=== PATIENT | male | born 1955 | race Caucasian/White ===

== ENCOUNTER 2018-09-11 02:24 | Emergency (ER) | payer SELFPAY ==
[~2018-09-11] VITALS: Ht 177.8 cm; Wt 70.0 kg
[2018-09-11 02:28] VITALS: BP 116/63
[2018-09-11 03:08] LABS: BASOPHILS # (AUTO) 0.03 x10^3/uL (0-0.1); BASOPHILS % (AUTO) 1 % (0-1); EOSINOPHILS # (AUTO) 0.15 x10^3/uL (0-0.4); EOSINOPHILS % (AUTO) 4 % (1-7); LYMPHOCYTES # (AUTO) 0.74 x10^3/uL (1-3.4); LYMPHOCYTES % (AUTO) 17 % (22-44); MD NO; MEAN CORPUSCULAR HGB CONC 33.6 g/dL (33.2-36.2); MEAN CORPUSCULAR VOLUME 92.2 fL (81-97); MEAN PLATELET VOLUME 6.5 fL (7.4-10.4); MONOCYTES # (AUTO) 0.67 x10^3/uL (0.2-0.8); MONOCYTES % (AUTO) 15 % (2-9); NEUTROPHILS # (AUTO) 2.73 x10^3/uL (1.8-6.8); NEUTROPHILS % (AUTO) 63 % (42-75); PLATELET COUNT 365 x10^3/uL (130-400); RED BLOOD COUNT 3.88 x10^6/uL (4.38-5.82); RED CELL DISTRIBUTION WIDTH 16.6 % (9.4-14.8)
[2018-09-11 03:17] LABS: ALANINE AMINOTRANSFERASE 23 U/L (12-78); ALBUMIN 3.5 g/dL (3.4-5.0); ANION GAP 12 mmol/L (5-15); CALCIUM 8.1 mg/dL (8.5-10.1); CHLORIDE 100 mmol/L (98-107); CREATININE 0.96 mg/dL (0.7-1.3)
[2018-09-11 03:20] LABS: ALKALINE PHOSPHATASE 73 U/L (45-117); BILIRUBIN,TOTAL 0.3 mg/dL (0.2-1.0); TOTAL PROTEIN 6.6 g/dL (6.4-8.2)
== END 2018-09-11 04:09 | disposition home or self-care (01) ==
LOC: ED 04:03
DX: F10.129 Alcohol abuse with intoxication, unspecified (principal); R56.9 Unspecified convulsions
CPT/HCPCS: 36415; 80053; 80307; 85025; 99283

== ENCOUNTER 2018-09-16 00:49 | Emergency (ER) | payer MEDICAID, MEDICARE ==
[~2018-09-16] VITALS: Ht 182.9 cm; Wt 60.0 kg
[2018-09-16] MEDS ORDERED: DEPAKOTE (01:02)
[2018-09-16] MEDS ORDERED: ALBUTEROL MDI (01:02)
[2018-09-16] MEDS ORDERED: SEROQUEL (01:02)
[2018-09-16 01:18] LABS: ALBUMIN 3.7 g/dL (3.4-5.0); ANION GAP 9 mmol/L (5-15); CALCIUM 8.1 mg/dL (8.5-10.1); CHLORIDE 107 mmol/L (98-107); CREATININE 0.97 mg/dL (0.7-1.3)
[2018-09-16 01:20] LABS: BASOPHILS # (AUTO) 0.12 x10^3/uL (0-0.1); BASOPHILS % (AUTO) 2 % (0-1); EOSINOPHILS # (AUTO) 0.15 x10^3/uL (0-0.4); EOSINOPHILS % (AUTO) 2 % (1-7); LYMPHOCYTES % (AUTO) 25 % (22-44); MD NO; MEAN CORPUSCULAR HEMOGLOBIN 30.8 pg (27.5-34.5); MEAN CORPUSCULAR HGB CONC 33.5 g/dL (33.2-36.2); MEAN CORPUSCULAR VOLUME 91.8 fL (81-97); MEAN PLATELET VOLUME 6.9 fL (7.4-10.4); MONOCYTES # (AUTO) 0.53 x10^3/uL (0.2-0.8); MONOCYTES % (AUTO) 7 % (2-9); NEUTROPHILS # (AUTO) 4.92 x10^3/uL (1.8-6.8); NEUTROPHILS % (AUTO) 65 % (42-75); PLATELET COUNT 313 x10^3/uL (130-400); RED BLOOD COUNT 3.75 x10^6/uL (4.38-5.82); RED CELL DISTRIBUTION WIDTH 16.3 % (9.4-14.8)
[2018-09-16 01:54] VITALS: BP 122/86
== END 2018-09-16 02:06 | disposition home or self-care (01) ==
LOC: ED 01:54
DX: G40.319 Generalized idiopathic epilepsy and epileptic syndromes, intractable, without status epilepticus (principal); Z72.9 Problem related to lifestyle, unspecified; F31.9 Bipolar disorder, unspecified; F17.200 Nicotine dependence, unspecified, uncomplicated
CPT/HCPCS: 36415; 80048; 82040; 85025; 93005; 99284

== ENCOUNTER 2018-09-16 14:02 | Emergency (ER) | payer MEDICARE ==
[~2018-09-16] VITALS: Ht 182.9 cm; Wt 58.0 kg
[~2018-09-16 14:02] MED LIST: ALBUTEROL MDI; DEPAKOTE; SEROQUEL
[2018-09-16 16:14] LABS: BASOPHILS # (AUTO) 0.06 x10^3/uL (0-0.1); BASOPHILS % (AUTO) 1 % (0-1); EOSINOPHILS # (AUTO) 0.14 x10^3/uL (0-0.4); EOSINOPHILS % (AUTO) 3 % (1-7); LYMPHOCYTES # (AUTO) 1.49 x10^3/uL (1-3.4); LYMPHOCYTES % (AUTO) 26 % (22-44); MD NO; MEAN CORPUSCULAR HEMOGLOBIN 30.3 pg (27.5-34.5); MEAN CORPUSCULAR HGB CONC 32.8 g/dL (33.2-36.2); MEAN CORPUSCULAR VOLUME 92.3 fL (81-97); MEAN PLATELET VOLUME 6.8 fL (7.4-10.4); MONOCYTES # (AUTO) 0.45 x10^3/uL (0.2-0.8); MONOCYTES % (AUTO) 8 % (2-9); NEUTROPHILS # (AUTO) 3.69 x10^3/uL (1.8-6.8); NEUTROPHILS % (AUTO) 63 % (42-75); PLATELET COUNT 325 x10^3/uL (130-400); RED BLOOD COUNT 3.92 x10^6/uL (4.38-5.82); RED CELL DISTRIBUTION WIDTH 17.5 % (9.4-14.8)
[2018-09-16 16:25] LABS: ALANINE AMINOTRANSFERASE 41 U/L (12-78); ALBUMIN 3.6 g/dL (3.4-5.0); ANION GAP 7 mmol/L (5-15); CALCIUM 7.9 mg/dL (8.5-10.1); CHLORIDE 105 mmol/L (98-107); CREATININE 1.29 mg/dL (0.7-1.3); SALICYLATE LEVEL 3.4 mg/dL (2.8-20.0)
[2018-09-16 16:27] LABS: ALKALINE PHOSPHATASE 75 U/L (45-117); BILIRUBIN,TOTAL 0.4 mg/dL (0.2-1.0); TOTAL PROTEIN 6.8 g/dL (6.4-8.2)
[2018-09-16 16:29] LABS: ACETAMINOPHEN < 2 mcg/mL (10-30)
[2018-09-16 16:42] LABS: AMPHETAMINE SCREEN, URINE Negative (Negative); BARBITURATE SCREEN, URINE Negative (Negative); BENZODIAZEPINE SCREEN, URINE Negative (Negative); CANNABINOID SCREEN, URINE Positive (Negative); COCAINE SCREEN, URINE Negative (Negative); METHADONE SCREEN, URINE Negative (Negative); OPIATE SCREEN, URINE Negative (Negative)
[2018-09-16 22:43] VITALS: BP 134/84
== END 2018-09-16 22:45 | disposition home or self-care (01) ==
LOC: ED 16:22
DX: F31.9 Bipolar disorder, unspecified (principal); F10.220 Alcohol dependence with intoxication, uncomplicated; G40.909 Epilepsy, unspecified, not intractable, without status epilepticus
CPT/HCPCS: 36415; 80053; 80307; 80329; 85025; 99284; G0480

== ENCOUNTER 2018-09-18 03:29 | Emergency (ER) | payer MEDICARE ==
[~2018-09-18] VITALS: Ht 177.8 cm; Wt 59.1 kg
[2018-09-18] MEDS ORDERED: ACETAMINOPHEN 500 MG TABLET ONE (03:43)
[2018-09-18] MEDS ORDERED: ACETAMINOPHEN 500 MG TABLET PO ONE (04:00)
[2018-09-18 04:13] VITALS: BP 132/74
== END 2018-09-18 04:43 | disposition home or self-care (01) ==
LOC: ED 03:42
DX: R51 Headache (principal); F31.9 Bipolar disorder, unspecified; G40.909 Epilepsy, unspecified, not intractable, without status epilepticus; F17.200 Nicotine dependence, unspecified, uncomplicated
CPT/HCPCS: 70486; 99284

== ENCOUNTER 2018-09-21 14:10 | Emergency (ER) | payer MEDICARE ==
[~2018-09-21] VITALS: Ht 182.9 cm; Wt 58.0 kg
[2018-09-21 14:14] VITALS: BP 133/83
[2018-09-21] MEDS ORDERED: QUET300T6 PO (14:26)
[2018-09-21] MEDS ORDERED: DIVA500T4 PO (14:26)
== END 2018-09-21 15:00 | disposition home or self-care (01) ==
LOC: ED 14:31
DX: R56.9 Unspecified convulsions (principal); Z76.0 Encounter for issue of repeat prescription; Z59.0 Homelessness; F31.9 Bipolar disorder, unspecified
CPT/HCPCS: 99283

== ENCOUNTER 2018-09-22 17:12 | Emergency (ER) | payer MEDICARE ==
[~2018-09-22] VITALS: Ht 182.9 cm; Wt 70.0 kg
[~2018-09-22 17:12] MED LIST changes: +DIVA500T4 PO; +QUET300T6 PO
--- NOTE | 2018-09-22 17:23 | NUR ---
BIB [facility]. Patient states that he has an rx to fill, but doesn't have the money to fill it. Patient admits to drinking 12 beers today and smoking marijuana. Patient admits to heroin use, but denies using today. Placed on NIBP and pulse ox. Will continue to monitor.
[2018-09-22 18:25] VITALS: BP 118/74
--- NOTE | 2018-09-22 18:25 | NUR ---
Resting in [facility]. VSS.
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
== END 2018-09-22 19:06 | disposition home or self-care (01) ==
LOC: ED 18:36
DX: F10.220 Alcohol dependence with intoxication, uncomplicated (principal); Z72.9 Problem related to lifestyle, unspecified; G40.909 Epilepsy, unspecified, not intractable, without status epilepticus; F31.9 Bipolar disorder, unspecified
CPT/HCPCS: 99283

== ENCOUNTER 2018-09-24 14:35 | Emergency (ER) | payer MEDICARE ==
[~2018-09-24] VITALS: Ht 185.4 cm; Wt 59.0 kg
[2018-09-24 14:49] VITALS: BP 147/86
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
--- NOTE | 2018-09-24 15:10 | NUR ---
PT TO IMAGING.
--- NOTE | 2018-09-24 15:15 | NUR ---
PT BACK FROM IMAGING. NO ACUTE DISTRESS NOTED. ALL SAFETY MEASURES OBTAINED. NO NEEDS REQUESTED AT THIS TIME.
--- NOTE | 2018-09-24 16:07 | NUR ---
PER EDMD, DR. CABALLERO, PT DENIED HI/SI. WHEN THIS RN REASSESSED PT, PT ALSO DENIES HI/SI. PT REQUESTING INFORMATION REGARDING HELPING WITH RX GETTING FILLED.GAVE PT INFORMATION ON CARE CHEST. PT VERBALIZED UNDERSTANDING REGARDING ALL DISCHARGE INFORMATION. ALL QUESTIONS ANSWERED. PT GIVEN ALL PERSONAL BELONGINGS.
--- NOTE | 2018-09-24 16:35 | NUR ---
Patient/Caregiver given discharge instructions and they have confirmed that they understand the instructions. Patient ambulatory with steady gait. PT LEFT WITH ALL PERSONAL BELONGINGS.
== END 2018-09-24 16:37 | disposition home or self-care (01) ==
LOC: ED 16:20
DX: J20.8 Acute bronchitis due to other specified organisms (principal); B97.89 Other viral agents as the cause of diseases classified elsewhere; G40.909 Epilepsy, unspecified, not intractable, without status epilepticus; F31.9 Bipolar disorder, unspecified
CPT/HCPCS: 71046; 99283

== ENCOUNTER 2018-09-25 01:58 | Emergency (ER) | payer MEDICARE | END 2018-09-25 02:05 | disposition left against medical advice (07) | LOC: ED 01:59 | DX: J00 Acute nasopharyngitis [common cold] (principal); Z53.21 Procedure and treatment not carried out due to patient leaving prior to being seen by health care provider ==

== ENCOUNTER 2018-09-25 03:19 | Emergency (ER) | payer MEDICARE ==
[~2018-09-25] VITALS: Ht 177.8 cm; Wt 80.0 kg
--- NOTE | 2018-09-25 03:22 | NUR ---
PT REFUSING TO ALLOW ANY STAFF, INCLUDING [facility], TO DO ANY INTERVENTIONS OR TAKE ANY VITALS/SUGARS ON HIM. MD ORDERS A SUGAR AND VITALS AND PT OUTRIGHT REFUSING.
--- NOTE | 2018-09-25 03:25 | NUR ---
PT KEEPS STATING "ITS COLD OUT THERE" "DONT MAKE ME GO OUT THERE AGAIN TONIGHT..... LET ME STAY HERE THEY REST OF TONIGHT."
== END 2018-09-25 03:32 | disposition home or self-care (01) ==
LOC: ED 03:25
DX: Z76.5 Malingerer [conscious simulation] (principal); J00 Acute nasopharyngitis [common cold]; Z72.9 Problem related to lifestyle, unspecified; F31.9 Bipolar disorder, unspecified; F17.200 Nicotine dependence, unspecified, uncomplicated
CPT/HCPCS: 99283

== ENCOUNTER 2018-09-29 06:47 | Emergency (ER) | payer MEDICARE ==
[~2018-09-29] VITALS: Ht 182.9 cm; Wt 58.0 kg
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
--- NOTE | 2018-09-29 08:54 | NUR ---
PT GIVEN MEAL TRAY
--- NOTE | 2018-09-29 09:36 | NUR ---
PT REBREATHALYZED AT 0.135
[2018-09-29] MEDS ORDERED: ACETAMINOPHEN 325 MG TABLET ONE (11:17)
[2018-09-29] MEDS ORDERED: ACETAMINOPHEN 325 MG TABLET PO ONE (12:00)
--- NOTE | 2018-09-29 12:06 | NUR ---
TASK RN: PT REBREATHALYZED AND IS NOW AT 0.06 PT PROVIDED W/ CUP WATER. CHART PLACED FOR RECHECK.
--- NOTE | 2018-09-29 12:31 | NUR ---
TASK RN: PT AWARE OF NEED FOR UA SAMPLE. URINAL LEFT AT BEDSIDE.
[2018-09-29 12:32] LABS: MEAN CORPUSCULAR HEMOGLOBIN 30.8 pg (27.5-34.5); MEAN CORPUSCULAR VOLUME 90.6 fL (81-97); MEAN PLATELET VOLUME 6.8 fL (7.4-10.4); PLATELET COUNT 369 x10^3/uL (130-400); RED BLOOD COUNT 3.97 x10^6/uL (4.38-5.82); RED CELL DISTRIBUTION WIDTH 16.7 % (9.4-14.8)
[2018-09-29 12:34] LABS: CHLORIDE 100 mmol/L (98-107)
[2018-09-29 12:38] LABS: ALBUMIN 3.6 g/dL (3.4-5.0); ANION GAP 10 mmol/L (5-15); CALCIUM 8.6 mg/dL (8.5-10.1); CREATININE 0.95 mg/dL (0.7-1.3)
[2018-09-29 12:39] LABS: ACETAMINOPHEN < 2 mcg/mL (10-30); SALICYLATE LEVEL 2.4 mg/dL (2.8-20.0)
[2018-09-29 12:49] LABS: BASOPHILS # (AUTO) 0.02 x10^3/uL (0-0.1); BASOPHILS % (AUTO) 0 % (0-1); EOSINOPHILS # (AUTO) 0.04 x10^3/uL (0-0.4); EOSINOPHILS % (AUTO) 0 % (1-7); LYMPHOCYTES # (AUTO) 0.52 x10^3/uL (1-3.4); LYMPHOCYTES % (AUTO) 5 % (22-44); MD SCAN; MONOCYTES # (AUTO) 0.44 x10^3/uL (0.2-0.8); MONOCYTES % (AUTO) 4 % (2-9); NEUTROPHILS # (AUTO) 10.03 x10^3/uL (1.8-6.8); NEUTROPHILS % (AUTO) 91 % (42-75)
--- NOTE | 2018-09-29 13:29 | NUR ---
RECEIVED REPORT . PT IS LAERT AND ORIENTED AND RESTING ON GURNEY WATCHING TV. PO FLUIDS AT BEDSIDE.
[2018-09-29 14:18] LABS: AMPHETAMINE SCREEN, URINE Negative (Negative); BARBITURATE SCREEN, URINE Negative (Negative); BENZODIAZEPINE SCREEN, URINE Negative (Negative); CANNABINOID SCREEN, URINE Positive (Negative); COCAINE SCREEN, URINE Positive (Negative); METHADONE SCREEN, URINE Negative (Negative); OPIATE SCREEN, URINE Negative (Negative)
--- NOTE | 2018-09-29 14:22 | NUR ---
VSS. PT HAS PO'S AT BEDSIDE. CALL LIGHT IS WITHIN REACH. NO NEW COMPLAINTS AT THIS TIME. WAITING FOR PSYCHE EVAL ORDERED BY .
--- NOTE | 2018-09-29 15:14 | NUR ---
Bedside SBAR report received from RN, Angelia. Pt resting on [place], telepsych robot placed at bedside and pt states that he has spoken to a telepsych MD before. Garage doors down and no belongings at bedside. Pt requesting water, this RN to provide.
--- NOTE | 2018-09-29 15:18 | NUR ---
PT AMBULATED TO AND FROM [facility] WITHOUT ASSIST. REPORT TO ANNA DUBOIS.
--- NOTE | 2018-09-29 15:25 | NUR ---
Telephone report given to [facility].
--- NOTE | 2018-09-29 15:28 | NUR ---
Pt speaking to SOC via telepsych at this time.
[2018-09-29 16:23] VITALS: BP 115/74
--- NOTE | 2018-09-29 16:24 | NUR ---
Patient/Caregiver given discharge instructions and they have confirmed that they understand the instructions. Patient ambulatory with steady gait.
== END 2018-09-29 16:25 | disposition home or self-care (01) ==
LOC: ED 06:50
DX: S00.83XA Contusion of other part of head, initial encounter (principal); R45.851 Suicidal ideations; R51 Headache; G40.909 Epilepsy, unspecified, not intractable, without status epilepticus; J44.9 Chronic obstructive pulmonary disease, unspecified; I10 Essential (primary) hypertension; Z59.0 Homelessness; Z72.9 Problem related to lifestyle, unspecified; Z86.73 Personal history of transient ischemic attack (TIA), and cerebral infarction without residual deficits; F17.200 Nicotine dependence, unspecified, uncomplicated; Y04.0XXA Assault by unarmed brawl or fight, initial encounter; Y93.89 Activity, other specified; Y92.89 Other specified places as the place of occurrence of the external cause; Y99.8 Other external cause status
CPT/HCPCS: 36415; 70450; 70486; 80048; 80307; 80329; 82040; 85025; 99284; G0480

== ENCOUNTER 2018-10-03 10:16 | Inpatient (IN) | payer MEDICARE ==
[~2018-10-03] VITALS: Ht 182.9 cm; Wt 64.5 kg
[2018-10-03] MEDS ORDERED: SODIUM CHLORIDE FLUSH 10ML SYR IVF ONE (11:30)
[2018-10-03 11:37] LABS: AMPHETAMINE SCREEN, URINE Negative (Negative); BARBITURATE SCREEN, URINE Negative (Negative); BENZODIAZEPINE SCREEN, URINE Negative (Negative); CANNABINOID SCREEN, URINE Positive (Negative); COCAINE SCREEN, URINE Negative (Negative); METHADONE SCREEN, URINE Negative (Negative); OPIATE SCREEN, URINE Negative (Negative)
[2018-10-03 11:43] LABS: BASOPHILS % (AUTO) 0 % (0-1); EOSINOPHILS # (AUTO) 0.02 x10^3/uL (0-0.4); EOSINOPHILS % (AUTO) 0 % (1-7); LYMPHOCYTES # (AUTO) 0.08 x10^3/uL (1-3.4); LYMPHOCYTES % (AUTO) 1 % (22-44); MD NO; MEAN CORPUSCULAR HEMOGLOBIN 30.1 pg (27.5-34.5); MEAN CORPUSCULAR VOLUME 91.1 fL (81-97); MONOCYTES # (AUTO) 0.56 x10^3/uL (0.2-0.8); MONOCYTES % (AUTO) 6 % (2-9); NEUTROPHILS # (AUTO) 9.16 x10^3/uL (1.8-6.8); NEUTROPHILS % (AUTO) 93 % (42-75); PLATELET COUNT 398 x10^3/uL (130-400); RED BLOOD COUNT 3.93 x10^6/uL (4.38-5.82); RED CELL DISTRIBUTION WIDTH 16.8 % (9.4-14.8)
[2018-10-03 11:53] LABS: INTERNATIONAL NORMALIZED RATIO 0.95 (0.93-1.1); PROTHROMBIN TIME 10.1 Seconds (9.6-11.5)
[2018-10-03 11:55] LABS: ALANINE AMINOTRANSFERASE 34 U/L (12-78); ALBUMIN 3.4 g/dL (3.4-5.0); ANION GAP 4 mmol/L (5-15); CALCIUM 8.9 mg/dL (8.5-10.1); CHLORIDE 102 mmol/L (98-107); CREATININE 0.82 mg/dL (0.7-1.3); SALICYLATE LEVEL 1.9 mg/dL (2.8-20.0)
[2018-10-03 12:00] LABS: ALKALINE PHOSPHATASE 139 U/L (45-117); BILIRUBIN,TOTAL 0.7 mg/dL (0.2-1.0); TOTAL PROTEIN 7.4 g/dL (6.4-8.2); TROPONIN I < 0.015 ng/mL (0.000-0.045)
--- NOTE | 2018-10-03 12:02 | NUR ---
Lunch RN: pt is resting in bed. NADN. Pt has good cap refill and equal and unlabored respirations. Pt has sitter outside room for continous safety monitoring.
[2018-10-03 12:15] LABS: ACETAMINOPHEN < 2 mcg/mL (10-30)
[2018-10-03] MEDS ORDERED: ACETAMINOPHEN 325 MG TABLET ONE (12:58)
[2018-10-03] MEDS ORDERED: ACETAMINOPHEN 325 MG TABLET PO ONE (13:00)
--- NOTE | 2018-10-03 13:16 | NUR ---
LATE NOTE ENTRY FOR 1047: Pt brought in by EMS on a legal hold prior to arrival to ED. Pt on a legal hold for SI. Pt states, "I want to hang myself. I am too sick and I want to end it all. I am bipolar one and I have tried to hang myself before." NADN. Pt provided hospital gown. All pt belongings placed in personal belonging bags and locked in ED locker for safe keeping. All SI precautions in place. Sitter near door way in direct line of sight for observation. Pt febrile at 102.2. ED MD aware. Pt provided urine sample upon arrival. Pt offered food. Pt declines food at this time.
[2018-10-03 13:29] LABS: MICROSCOPIC INDICATED
[2018-10-03 13:30] LABS: RAPID INFLUENZA A Negative (Negative); RAPID INFLUENZA B Negative (Negative)
[2018-10-03 13:31] LABS: CULTURE INDICATED? NO
[2018-10-03] MEDS ORDERED: SODIUM CHLORIDE FLUSH 10ML SYR IVF PRN (14:30)
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
[2018-10-03] MEDS ORDERED: ONDANSETRON 2MG/ML, 2ML IVPush PRN (15:30)
[2018-10-03] MEDS ORDERED: hydrALAzine 20 MG/ML, 1ML IVPush PRN (15:30)
[2018-10-03] MEDS ORDERED: NICOTINE 7 MG/24 HR PATCH.TD24 ONE (15:46)
[2018-10-03] MEDS ORDERED: CEFTRIAXONE PMX 1GM/50ML 50 ML ONE (15:46)
[2018-10-03] MEDS ORDERED: ENOXAPARIN 40 MG/0.4 ML ONE (15:46)
[2018-10-03] MEDS: SODIUM CHLORIDE 0.9% 1,000 ML IV SCH (16:25)
[2018-10-03] MEDS: ENOXAPARIN 40 MG/0.4 ML SQ SCH (16:26)
[2018-10-03] MEDS: CEFTRIAXONE PMX 2GM/50ML 50 ML IV SCH (16:26)
[2018-10-03] MEDS: NICOTINE 7 MG/24 HR PATCH.TD24 TD SCH (16:26)
--- NOTE | 2018-10-03 16:29 | NUR ---
Pt requesting phone numbers located from "my black dress pants in my belongings so I can call the officer who wants to pay for me to go home to [place] and my brother's phone number so I can get the money order from my brother." Will look for pt's contact list. Pt ate lunch tray provided. Pt appreciative. Placed PIV and started IV medications and fluids per EMAR. Provided medications per EMAR. Pt appreciative and states, "I know I will feel much better after I get the antibiotics."
--- NOTE | 2018-10-03 16:32 | NUR ---
Dinner meal tray provided for pt. Pt appreciative. Sitter near doorway in direct line of sight for observation. All SI precautions in place.
--- NOTE | 2018-10-03 17:24 | NUR ---
PT STATES, "I STARTED LIVING WITH THE HOMELESS IN [place] TO SEE WHAT IT WAS LIKE. I THEN CAME OUT TO [place] BECAUSE I THOUGHT IT WAS WARM LIKE [place]."
--- NOTE | 2018-10-03 17:25 | NUR ---
PROVIDED REPORT TO SILVINO PUENTE. ALL QUESTIONS ANSWERED. PT READY TO TRASFER TO FLOOR.
--- NOTE | 2018-10-03 17:27 | NUR ---
PIV FLUIDS AND MEDICATIONS INFUSING WHEN PT TRANSFERED FROM ED TO FLOOR.
--- NOTE | 2018-10-03 18:47 | NUR ---
PIV ANTIBIOTIC FINISHED INFUSING IN ED. PT TRANSFERED TO FLOOR FROM ED AND LEFT WITH ALL PERSONAL BELONGINGS. PIV FLUIDS INFUSING ON TRANSFER.
[2018-10-03 19:07] VITALS: BP 124/79
[2018-10-03] MEDS: QUETIAPINE 100MG TABLET PO SCH (20:50)
[2018-10-03] MEDS: DOXYCYCLINE 100MG TABLET PO SCH (20:51)
[2018-10-03] MEDS: DIVALPROEX 500 MG TAB.ER.24H PO SCH (20:51)
[2018-10-03] MEDS: ACETAMINOPHEN 325 MG TABLET PO PRN (22:09)
[2018-10-04 01:06] VITALS: BP 118/78
[2018-10-04] MEDS: SODIUM CHLORIDE 0.9% 1,000 ML IV SCH ×3 (03:45→18:18)
[2018-10-04] MEDS: ACETAMINOPHEN 325 MG TABLET PO PRN (03:46)
[2018-10-04 05:20] LABS: CHLORIDE 104 mmol/L (98-107)
[2018-10-04 05:24] LABS: ANION GAP 8 mmol/L (5-15); CALCIUM 7.9 mg/dL (8.5-10.1); CREATININE 0.79 mg/dL (0.7-1.3)
[2018-10-04 05:38] LABS: MEAN CORPUSCULAR HEMOGLOBIN 30.5 pg (27.5-34.5); MEAN CORPUSCULAR HGB CONC 33.2 g/dL (33.2-36.2); MEAN CORPUSCULAR VOLUME 91.7 fL (81-97); MEAN PLATELET VOLUME 7.1 fL (7.4-10.4); PLATELET COUNT 362 x10^3/uL (130-400); RED BLOOD COUNT 3.59 x10^6/uL (4.38-5.82)
[2018-10-04 05:56] LABS: MD YES
[2018-10-04 05:58] LABS: EOS#(MANUAL) 0.05 x10^3/uL (0.0-0.4); EOS% (MANUAL) 1 % (1-7); LYMPH#(MANUAL) 0.62 x10^3/uL (1-3.4); LYMPHS% (MANUAL) 13 % (22-44); MONOS#(MANUAL) 0.86 x10^3/uL (0.3-2.7); MONOS% (MANUAL) 18 % (2-9); SEG#(MANUAL) 3.26 x10^3/uL (1.8-6.8); SEGS% (MANUAL) 68 % (42-75)
[2018-10-04 06:00] LABS: <PLATELET ESTIMATE> ADEQUATE; <PLT MORPHOLOGY> NORMAL PLT MORPH; ANISOCYTOSIS 1+
[2018-10-04 07:22] VITALS: BP 112/69
[2018-10-04] MEDS: DOXYCYCLINE 100MG TABLET PO SCH ×2 (10:15→21:18)
[2018-10-04] MEDS: QUETIAPINE 100MG TABLET PO SCH ×3 (10:16→21:18)
[2018-10-04 12:56] LABS: CLOSTRIDIUM DIFFICILE ANTIGEN NEGATIVE; CLOSTRIDIUM DIFFICILE TOXIN NEGATIVE (Negative)
[2018-10-04 13:14] VITALS: BP 113/70
[2018-10-04] MEDS: NICOTINE 7 MG/24 HR PATCH.TD24 TD SCH (14:22)
[2018-10-04] MEDS: ENOXAPARIN 40 MG/0.4 ML SQ SCH (15:33)
[2018-10-04] MEDS: CEFTRIAXONE PMX 2GM/50ML 50 ML IV SCH (15:33)
[2018-10-04 19:08] VITALS: BP 121/74
[2018-10-04] MEDS: DIVALPROEX 500 MG TAB.ER.24H PO SCH (21:18)
[2018-10-05 00:52] VITALS: BP 127/75
[2018-10-05] MEDS: SODIUM CHLORIDE 0.9% 1,000 ML IV SCH ×3 (01:30→18:42)
[2018-10-05 06:42] VITALS: BP 132/76
[2018-10-05] MEDS: POTASSIUM CHLORIDE 20 MEQ TAB.ER.PRT PO SCH ×2 (08:58→12:46)
[2018-10-05] MEDS: DOXYCYCLINE 100MG TABLET PO SCH ×2 (08:58→20:48)
[2018-10-05] MEDS: QUETIAPINE 100MG TABLET PO SCH ×3 (08:59→20:49)
[2018-10-05 13:20] VITALS: BP 134/85
[2018-10-05] MEDS: CEFTRIAXONE PMX 2GM/50ML 50 ML IV SCH (16:01)
[2018-10-05] MEDS: ENOXAPARIN 40 MG/0.4 ML SQ SCH (16:01)
[2018-10-05] MEDS: NICOTINE 7 MG/24 HR PATCH.TD24 TD SCH (16:01)
[2018-10-05 20:03] VITALS: BP 128/76
[2018-10-05] MEDS: DIVALPROEX 500 MG TAB.ER.24H PO SCH (20:48)
[2018-10-06] MEDS: SODIUM CHLORIDE 0.9% 1,000 ML IV SCH ×2 (00:41→08:43)
[2018-10-06 04:21] VITALS: BP 138/70
[2018-10-06 05:48] LABS: CHLORIDE 107 mmol/L (98-107)
[2018-10-06 05:51] LABS: ANION GAP 6 mmol/L (5-15); CALCIUM 8.2 mg/dL (8.5-10.1); CREATININE 0.69 mg/dL (0.7-1.3)
[2018-10-06 07:15] VITALS: BP 129/73
[2018-10-06] MEDS: DOXYCYCLINE 100MG TABLET PO SCH ×2 (08:43→20:56)
[2018-10-06 13:25] VITALS: BP 115/60
[2018-10-06] MEDS: NICOTINE 7 MG/24 HR PATCH.TD24 TD SCH (13:36)
[2018-10-06] MEDS: ENOXAPARIN 40 MG/0.4 ML SQ SCH (13:37)
[2018-10-06 19:03] VITALS: BP 130/76
[2018-10-06] MEDS: CEFDINIR 300 MG CAPSULE PO SCH (20:55)
[2018-10-06] MEDS: QUETIAPINE 100MG TABLET PO SCH (20:56)
[2018-10-06] MEDS: DIVALPROEX 500 MG TAB.ER.24H PO SCH (20:56)
[2018-10-06] MEDS ORDERED: CALCIUM CARBONATE 500 MG TAB.CHEW PO ONE (23:30)
[2018-10-07 01:55] VITALS: BP 117/71
[2018-10-07 06:43] VITALS: BP 123/70
[2018-10-07 06:47] VITALS: BP 115/75
[2018-10-07] MEDS: CEFDINIR 300 MG CAPSULE PO SCH ×2 (07:53→20:33)
[2018-10-07] MEDS: DOXYCYCLINE 100MG TABLET PO SCH ×2 (07:53→20:33)
[2018-10-07 12:47] VITALS: BP 110/65
[2018-10-07] MEDS ORDERED: CALCIUM CARBONATE 500 MG TAB.CHEW PO ONE (15:30)
[2018-10-07] MEDS: ENOXAPARIN 40 MG/0.4 ML SQ SCH (15:30)
[2018-10-07] MEDS: NICOTINE 7 MG/24 HR PATCH.TD24 TD SCH (15:55)
[2018-10-07] MEDS ORDERED: NICO-485 TD (17:54)
[2018-10-07] MEDS ORDERED: DOXY100T PO (17:54)
[2018-10-07] MEDS ORDERED: CEFD300C37 PO (17:54)
[2018-10-07 19:30] VITALS: BP 125/73
[2018-10-07] MEDS: DIVALPROEX 500 MG TAB.ER.24H PO SCH (20:33)
[2018-10-07] MEDS: QUETIAPINE 100MG TABLET PO SCH (20:33)
[2018-10-08 04:41] VITALS: BP 120/70
[2018-10-08 06:40] VITALS: BP 116/72
[2018-10-08] MEDS: DOXYCYCLINE 100MG TABLET PO SCH (07:38)
[2018-10-08] MEDS: CEFDINIR 300 MG CAPSULE PO SCH (07:38)
== END 2018-10-08 09:20 | disposition home or self-care (01) | DRG 190 ==
LOC: ED 11:37 → EDIP 14:04 → 3NE 18:35
PROVIDERS: ADMIT Internal Medicine; ATTEND Internal Medicine
DX: J44.0 Chronic obstructive pulmonary disease with (acute) lower respiratory infection (principal); J15.9 Unspecified bacterial pneumonia; R45.851 Suicidal ideations; K70.10 Alcoholic hepatitis without ascites; F31.70 Bipolar disorder, currently in remission, most recent episode unspecified; F12.90 Cannabis use, unspecified, uncomplicated; I10 Essential (primary) hypertension; Z80.8 Family history of malignant neoplasm of other organs or systems; Z87.891 Personal history of nicotine dependence; Z91.5 Personal history of self-harm
CPT/HCPCS: 36415; 71045; 80048; 80053; 80307; 80329; 81001; 83605; 83735; 83880; 84100; 84443; 84484; 85025; 85610; 85730; 87040; 87070; 87205; 87324; 87400; 93005; 96372; 96374; 99285; G0378; J0696; J1650; G0480; J7030

== ENCOUNTER 2018-10-08 23:41 | Emergency (ER) | payer MEDICARE ==
[~2018-10-08] VITALS: Ht 182.9 cm; Wt 60.0 kg
[~2018-10-08 23:41] MED LIST changes: +CEFD300C37 PO; +DOXY100T PO; +NICO-485 TD
[2018-10-09 00:01] VITALS: BP 144/76
[2018-10-09 00:09] LABS: BASOPHILS # (AUTO) 0.13 x10^3/uL (0-0.1); BASOPHILS % (AUTO) 2 % (0-1); EOSINOPHILS # (AUTO) 0.05 x10^3/uL (0-0.4); EOSINOPHILS % (AUTO) 1 % (1-7); LYMPHOCYTES # (AUTO) 1.17 x10^3/uL (1-3.4); LYMPHOCYTES % (AUTO) 13 % (22-44); MD NO; MEAN CORPUSCULAR HEMOGLOBIN 30.5 pg (27.5-34.5); MEAN CORPUSCULAR HGB CONC 33.8 g/dL (33.2-36.2); MEAN CORPUSCULAR VOLUME 90.3 fL (81-97); MEAN PLATELET VOLUME 6.5 fL (7.4-10.4); MONOCYTES # (AUTO) 0.42 x10^3/uL (0.2-0.8); MONOCYTES % (AUTO) 5 % (2-9); NEUTROPHILS # (AUTO) 7.14 x10^3/uL (1.8-6.8); NEUTROPHILS % (AUTO) 80 % (42-75); PLATELET COUNT 517 x10^3/uL (130-400); RED CELL DISTRIBUTION WIDTH 16.4 % (9.4-14.8)
[2018-10-09 00:14] LABS: ALANINE AMINOTRANSFERASE 25 U/L (12-78); ALBUMIN 3.4 g/dL (3.4-5.0); ANION GAP 6 mmol/L (5-15); CALCIUM 8.6 mg/dL (8.5-10.1); CHLORIDE 102 mmol/L (98-107)
[2018-10-09 00:17] LABS: ALKALINE PHOSPHATASE 86 U/L (45-117); BILIRUBIN,TOTAL 0.2 mg/dL (0.2-1.0); CREATININE 0.92 mg/dL (0.7-1.3); T4 (THYROXINE) 8.9 mcg/dL (4.5-12.1); TOTAL PROTEIN 7.1 g/dL (6.4-8.2); TROPONIN I < 0.015 ng/mL (0.000-0.045)
[2018-10-09 00:22] LABS: FREE T4 (FREE THYROXINE) 0.97 ng/dL (0.76-1.46)
== END 2018-10-09 00:44 | disposition home or self-care (01) ==
LOC: ED 23:59
DX: R00.2 Palpitations (principal); Z72.9 Problem related to lifestyle, unspecified; G40.909 Epilepsy, unspecified, not intractable, without status epilepticus; F31.9 Bipolar disorder, unspecified; J44.9 Chronic obstructive pulmonary disease, unspecified; I10 Essential (primary) hypertension; Z86.73 Personal history of transient ischemic attack (TIA), and cerebral infarction without residual deficits
CPT/HCPCS: 36415; 71045; 80053; 83735; 84436; 84439; 84443; 84484; 85025; 93005; 99284

== ENCOUNTER 2018-10-28 01:37 | Emergency (ER) | payer MEDICARE ==
[~2018-10-28] VITALS: Ht 165.1 cm; Wt 66.6 kg
[2018-10-28] MEDS ORDERED: ALBUTEROL SULFATE 2.5MG/0.5ML ONE (01:56)
[2018-10-28] MEDS ORDERED: ALBUTEROL/IPRATROPIUM 2.5MG/0.5MG, 3 ML ONE (01:56)
--- NOTE | 2018-10-28 01:58 | NUR ---
PT AMBULATED OUT OF ROOM TO NURSE'S STATION TO ADVISE MD, "I FEEL LIKE I WANT TO GO HOME."
[2018-10-28] MEDS ORDERED: ALBUTEROL SULFATE 2.5 MG/3 ML NPPB ONE (02:00)
[2018-10-28] MEDS ORDERED: ALBUTEROL/IPRATROPIUM 2.5MG/0.5MG, 3 ML NPPB ONE (02:00)
--- NOTE | 2018-10-28 02:02 | NUR ---
RT AT BEDSIDE, PT RECEIVING BREATHING TX.
[2018-10-28] MEDS ORDERED: TRAMADOL PO (02:07)
[2018-10-28] MEDS ORDERED: [UNRECOGNIZED DRUG - OTHER] PO (02:07)
--- NOTE | 2018-10-28 02:14 | NUR ---
PT MEDICATED PER [facility]. Patient/Caregiver given discharge instructions and they have confirmed that they understand the instructions. Patient ambulatory with steady gait.
[2018-10-28 02:23] VITALS: BP 124/64
--- NOTE | 2018-10-28 02:23 | NUR ---
Pt given taxi cab voucher for safe discharge home.
== END 2018-10-28 02:24 | disposition home or self-care (01) ==
LOC: ED 02:11
DX: J20.8 Acute bronchitis due to other specified organisms (principal); J44.1 Chronic obstructive pulmonary disease with (acute) exacerbation; I10 Essential (primary) hypertension; F31.9 Bipolar disorder, unspecified; F17.200 Nicotine dependence, unspecified, uncomplicated; Z86.73 Personal history of transient ischemic attack (TIA), and cerebral infarction without residual deficits; Z72.9 Problem related to lifestyle, unspecified
CPT/HCPCS: 71045; 99283; J7512; J7613; J7620